=== PATIENT | male | born 1980 | race Caucasian/White ===

== ENCOUNTER 2019-05-01 | Emergency (ER) | payer SELFPAY ==
[~2019-05-01] MED LIST: BACTRIM DS1 TAB PO; BUSPAR15 MG OR; CEPHALEXIN500 M1 OR; FLEXERIL10 MG PO; LITHIUM CARB300 MG OR; LITHIUM CARB600 MG OR; NO HOME MEDS; ROBITUSSIN AC10 ML OR; ULTRAM50 M1 PO; ULTRAM50 MG OR; ULTRAM50 MG PO
[2019-05-01] MEDS ORDERED: BACTRIM DS1 TAB PO (11:10)
[2019-05-01] MEDS ORDERED: CEPHALEXIN500 M1 PO (11:10)
[2019-05-01 11:12] LABS: HEMATOCRIT 40.2 % (39.0-50.0); IMMATURE GRANULOCYTES 0.5 % (0.0-5.0); MEAN CELL VOLUME 88.9 fL CALC (80.0-100.0); MEAN CORPUSCULAR HGB 28.5 pG CALC (26.0-32.0); MEAN CORPUSCULAR HGB CONC 32.1 g/L CALC (32.0-36.0); NEUT# 15.45 thou/uL (1.82-7.42); RED BLOOD COUNT 4.52 mill/uL (4.70-6.10); RED CELL DISTRI WIDTH 12.4 % (11.5-15.5)
[2019-05-01 11:18] LABS: HEMOGLOBIN 12.9 g/dl (14.0-18.0)
[2019-05-01 11:33] LABS: ANION GAP 11 (6-22 (CALC)); BUN 20 mg/dL (9-20); BUN/CREATININE RATIO 49 (12-20 (CALC)); CHLORIDE 100 mmol/l (95-108); CREATININE 0.4 mg/dL (0.7-1.3); GFR > 60 ML/MIN (>=60 (CALC)); GFR FOR AFR.AMER. > 60 ML/MIN (>=60 (CALC)); POTASSIUM 4.8 mmol/l (3.5-5.1); SODIUM 138 mmol/l (137-146)
[2019-05-01 11:34] LABS: CARBON DIOXIDE 32 mmol/l (22-30)
== END 2019-05-01 12:28 | disposition home or self-care (01) | DRG 92 ==
PROVIDERS: Family Medicine
DX: R25.2 Cramp and spasm (principal); L03.113 Cellulitis of right upper limb; G71.00 Muscular dystrophy, unspecified; F17.200 Nicotine dependence, unspecified, uncomplicated

== ENCOUNTER 2019-10-28 15:58 | Emergency (ER) | payer SELFPAY ==
[~2019-10-28 15:58] MED LIST changes: +CEPHALEXIN500 M1 PO
== END 2019-10-28 16:00 | disposition left against medical advice (07) | DRG 951 ==
LOC: ED 15:58 → LWOBS 16:00
DX: Z53.21 Procedure and treatment not carried out due to patient leaving prior to being seen by health care provider (principal)

== ENCOUNTER 2020-01-31 17:48 | Emergency (ER) | payer SELFPAY | END 2020-01-31 18:31 | disposition left against medical advice (07) | DRG 951 | LOC: ED 17:48 → LWOBS 18:30 → ED 19:34 | DX: Z53.21 Procedure and treatment not carried out due to patient leaving prior to being seen by health care provider (principal) ==

== ENCOUNTER 2021-05-30 11:46 | Emergency (ER) | payer SELFPAY ==
[~2021-05-30] VITALS: Ht 172.7 cm; Wt 65.0 kg
[2021-05-30 11:55] VITALS: BP 122/73
[2021-05-30 12:30] VITALS: BP 118/78
[2021-05-30 12:53] LABS: HEMATOCRIT 40.1 % (39.0-50.0); HEMOGLOBIN 13.1 g/dl (14.0-18.0); IMMATURE GRANULOCYTES 0.2 % (0.0-5.0); MEAN CELL VOLUME 87.4 fL CALC (80.0-100.0); MEAN CORPUSCULAR HGB 28.5 pG CALC (26.0-32.0); MEAN CORPUSCULAR HGB CONC 32.7 g/dL CAL (32.0-36.0); NEUT# 10.84 thou/uL (1.82-7.42); RED BLOOD COUNT 4.59 mill/uL (4.70-6.10); RED CELL DISTRI WIDTH 12.4 % (11.5-15.5)
[2021-05-30 13:00] VITALS: BP 117/80
[2021-05-30 13:16] LABS: ANION GAP 12 (6-22 (CALC)); BUN 22 mg/dL (9-20); BUN/CREATININE RATIO 37 (12-20 (CALC)); C-REACTIVE PROTEIN 0.8 mg/dL (0-0.9); CARBON DIOXIDE 29 mmol/l (22-30); CHLORIDE 103 mmol/l (95-108); CREATININE 0.6 mg/dL (0.7-1.3); GFR > 60 ML/MIN (>=60 (CALC)); GFR FOR AFR.AMER. > 60 ML/MIN (>=60 (CALC)); SODIUM 140 mmol/l (137-146)
[2021-05-30 13:18] LABS: POTASSIUM 3.8 mmol/l (3.5-5.1)
[2021-05-30] MEDS ORDERED: TRAMADOL HCL50 MG PO (13:27)
[2021-05-30] MEDS ORDERED: KEFLEX500 MG PO (13:27)
[2021-05-30 13:30] VITALS: BP 125/78
[2021-05-30 13:38] VITALS: BP 125/78
== END 2021-05-30 13:48 | disposition home or self-care (01) | DRG 603 ==
LOC: ED 11:46
PROVIDERS: Nurse Practitioner
DX: L03.113 Cellulitis of right upper limb (principal); L98.499 Non-pressure chronic ulcer of skin of other sites with unspecified severity; G71.00 Muscular dystrophy, unspecified; F17.200 Nicotine dependence, unspecified, uncomplicated

== ENCOUNTER 2021-11-06 22:17 | Emergency (ER) | payer SELFPAY ==
[~2021-11-06] VITALS: Ht 172.7 cm; Wt 60.0 kg
[~2021-11-06 22:17] MED LIST changes: +KEFLEX500 MG PO; +TRAMADOL HCL50 MG PO
[2021-11-06] MEDS ORDERED: VOLTAREN75 MG PO (23:04)
[2021-11-06 23:45] VITALS: BP 103/64
== END 2021-11-07 00:15 | disposition home or self-care (01) | DRG 563 ==
LOC: ED 22:17
DX: S83.91XA Sprain of unspecified site of right knee, initial encounter (principal); G71.00 Muscular dystrophy, unspecified; F17.200 Nicotine dependence, unspecified, uncomplicated; X50.0XXA Overexertion from strenuous movement or load, initial encounter